=== PATIENT | male | born 2000 | race Caucasian/White ===

== ENCOUNTER 2022-05-10 10:00 | Emergency (ER) | payer MEDICAID ==
[~2022-05-10] VITALS: Ht 167.6 cm; Wt 155.0 kg
[2022-05-10 10:20] VITALS: BP 118/72
== END 2022-05-10 11:44 | disposition left against medical advice (07) ==
LOC: ER 10:00
DX: Z53.21 Procedure and treatment not carried out due to patient leaving prior to being seen by health care provider (principal)